=== PATIENT | female | born 1955 | race Hispanic/Latino ===

== ENCOUNTER 2016-06-20 14:47 | Emergency (ER) | payer OTHER ==
[2016-06-20 14:55] VITALS: TEMP 97.8
[2016-06-20 15:23] VITALS: BMI 24.6
--- NOTE | 2016-06-20 15:24 | ED PDOC ---
Arrival/HPI - General Chief Complaint: Abdominal Pain Time Seen by Provider: 06/20/16 14:48 Past Medical History - Infectious Disease Hx of Infectious Diseases: None - Reproductive Menopause: Yes - Cardiac Hx Cardiac Disorders: No - Pulmonary Hx Respiratory Disorders: No - Neurological Hx Neurological Disorder: No - HEENT Hx HEENT Disorder: No - Renal Hx Renal Disorder: No - Endocrine/Metabolic Hx Endocrine Disorders: No - Hematological/Oncological Hx Blood Disorders: No - Integumentary Hx Dermatological Disorder: No - Musculoskeletal/Rheumatological Hx Musculoskeletal Disorders: No - Gastrointestinal Hx Gastrointestinal Disorders: No - Genitourinary/Gynecological Hx Genitourinary Disorders: No - Psychiatric Hx Psychophysiologic Disorder: No Hx Substance Use: No - Anesthesia Hx Anesthesia: No Family/Social History Smoking Status: Never Smoked Hx Alcohol Use: No Hx Substance Use: No Physical Exam Vital Signs Temp Pulse Resp BP Pulse Ox 06/20/16 14:54 97.8 F 78 18 109/68 99 Disposition/Present on Arrival - Present on Arrival History of DVT/PE: No History of Uncontrolled Diabetes: No Urinary Catheter: No History of Decub. Ulcer: No History Surgical Site Infection Following: None
--- NOTE | 2016-06-20 15:24 | ED PDOC ---
Arrival/HPI - General Chief Complaint: Abdominal Pain Time Seen by Provider: 06/20/16 14:48 Historian: Patient - History of Present Illness Narrative History of Present Illness (Text): 06/20/16 15:21 Patient is a 61 yo female, no prior surgeries, presents to ED with difficulty urinating with some dysuria this AM, then developed right sided pain that would radiate to back, severe. Reports feeling nauseous, had episode of vomiting, and pain has almost completely resolved. Currently states she still has some difficulty urinating, although is able to do small amounts. Patient denies chest pain or shortness of breath. Nausea now resolved. No dark or bloody urine or stool noted. Time/Duration: Prior to Arrival Symptom Onset: Sudden Symptom Course: Improving Past Medical History - Infectious Disease Hx of Infectious Diseases: None - Reproductive Menopause: Yes - Cardiac Hx Cardiac Disorders: No - Pulmonary Hx Respiratory Disorders: No - Neurological Hx Neurological Disorder: No - HEENT Hx HEENT Disorder: No - Renal Hx Renal Disorder: No - Endocrine/Metabolic Hx Endocrine Disorders: No - Hematological/Oncological Hx Blood Disorders: No - Integumentary Hx Dermatological Disorder: No - Musculoskeletal/Rheumatological Hx Musculoskeletal Disorders: No - Gastrointestinal Hx Gastrointestinal Disorders: No - Genitourinary/Gynecological Hx Genitourinary Disorders: No - Psychiatric Hx Psychophysiologic Disorder: No Hx Substance Use: No - Anesthesia Hx Anesthesia: No Family/Social History Family/Social History: Unknown Family HX Smoking Status: Never Smoked Hx Alcohol Use: No Hx Substance Use: No Allergies/Home Meds Allergies/Adverse Reactions: Allergies aspirin Allergy (Unknown, Verified 06/20/16 15:25) SWELLING "That happened when I was really young." Review of Systems - Review of Systems Constitutional: absent: Fatigue, Fevers Eyes: absent: Vision Changes Respiratory: absent: SOB Cardiovascular: absent: Chest Pain Gastrointestinal: Abdominal Pain, Nausea, Vomiting. absent: Diarrhea Genitourinary Female: Dysuria, Frequency, Urine Output Changes. absent: Hematuria, Vaginal Bleeding, Vaginal Discharge Musculoskeletal: Back Pain. absent: Neck Pain Skin: absent: Rash Neurological: absent: Headache, Dizziness, Focal Weakness Endocrine: absent: Polyuria Hemo/Lymphatic: absent: Easy Bleeding Physical Exam - Physical Exam Narrative Physical Exam (Text): Head: Atraumatic. Normocephalic. Eyes: PERRL. EOMI. Conjunctivae are not pale. ENT: Mucous membranes are moist and intact. Oropharynx is clear and symmetric. Neck: Supple. Full ROM. No JVD. No lymphadenopathy. Cardiovascular: Regular rate. Regular rhythm. No murmurs, rubs, or gallops. Distal pulses are 2+ and symmetric. Pulmonary/Chest: No evidence of respiratory distress. Clear to auscultation bilaterally. No wheezing, rales or rhonchi. Abdominal: Soft and non-distended. There is no tenderness. No rebound, guarding, or rigidity. No organomegaly. Good bowel sounds. No incarcerated hernias. Back: No CVA tenderness. Extremities: No edema. No cyanosis. No clubbing. Full range of motion in all extremities. No calf tenderness. Skin: Skin is warm and dry. No petechiae. No purpura. Neurological: Alert, awake, and oriented. MOtor and sensory intact Psychiatric: Good eye contact. Normal interaction, affect, and behavior. Vital Signs Reviewed: Yes Vital Signs Temp Pulse Resp BP Pulse Ox 06/20/16 18:02 88 16 114/58 L 96 06/20/16 16:23 72 18 111/66 99 06/20/16 14:54 97.8 F 78 18 109/68 99 Temperature: Afebrile Appearance: Positive for: Non-Toxic, Comfortable Pain Distress: Mild Mental Status: Positive for: Alert and Oriented X 3 Medical Decision Making ED Course and Treatment: Differential diagnosis includes but is not limited to: Kidney stones vs abdominal pain Plan: Will obtain CT of the Abdomen and Pelvis and check labs. PROCEDURE: CT Abdomen and Pelvis without intravenous contrast Finish Sander : NICKOLAS LAST MD IMPRESSION: 1. No evidence of right nephrolithiasis, hydronephrosis or obstructive uropathy. 2. 3 mm nonobstructing calculi in the interpolar region and lower pole of the left kidney. 3 mm stone in the urinary bladder along the left posterolateral wall. 3. Normal appendix. Progress Notes: Patient reports initially feeling difficulty urinating prior to pain, but was able to do so, just not complete stream. She subsequently developed intermittent pain, "on and off". She had severe right sided pain prior to arrival, vomited, and pain now almoset completely resolved. Given history of urinary symptoms as well as intermittent nature of pain, suspect renal colic. On current exam in ED, no RLQ pain, no RUQ pain. Exam not consistent with appendicitis or cholecystitis due to lack of pain. On reexamination patient has no pain or discomfort and reports the pain is completely resolved. No hydronephrosis noted on CT. Patient able to urinate. WBC elevated although not septic and afebrile. Possible urinary tract infection noted. Prior antibiotic sensitivities were reviewed with her, thus patient will be placed on Macrodantin. Advised patient to follow up with urology for possible passed kidney stone. - Lab Interpretations Microbiology Results: Microbiology Results 06/20/16 15:29 Urine Urine Culture - Final No Growth (<1,000 CFU/ML) Lab Results: 06/20/16 15:29 06/20/16 15:29 Lab Results 06/20/16 15:29: WBC 15.8 H, RBC 4.43, Hgb 14.3, Hct 40.1, MCV 90.5, MCH 32.3, MCHC 35.7, RDW 13.8, Plt Count 287, MPV 10.3, Gran % 82.9 H, Lymph % (Auto) 12.4 L, [place] % (Auto) 3.9, Eos % (Auto) 0.6 L, Baso % (Auto) 0.2, Gran # 13.05 H , Lymph # 2.0, [place] # 0.6, Eos # 0.1, Baso # 0.03, Sodium 141, Potassium 3.7, Chloride 103, Carbon Dioxide 26, Anion Gap 16, BUN 20, Creatinine 1.0, Est GFR ( Amer) > 60, Est GFR (Non-Af Amer) 56, Random Glucose 115 H, Calcium 9.7 , Total Bilirubin 0.5, AST 28, ALT 29, Alkaline Phosphatase 82, Total Protein 7.1, Albumin 4.1, Globulin 3.0, Albumin/Globulin Ratio 1.4, Urine Color Yellow, Urine Appearance Clear, Urine pH 6.0, Ur Specific [place] 1.025, Urine Protein Trace H, Urine Glucose (UA) Negative, Urine Ketones Negative, Urine Blood Large H, Urine Nitrate Negative, Urine Bilirubin Negative, Urine Urobilinogen 0.2, Ur Leukocyte Esterase Negative, Urine RBC 25 - 30, Urine WBC 0 - 2, Ur Epithelial Cells 4 - 5, Amorphous Sediment Few, Urine Bacteria Mod - RAD Interpretation Radiology Orders: 03/24/17 15:28 ABD & PELVIS W/O PO OR IV CONT [CT] Stat - Medication Orders Current Medication Orders: Discontinued Medications Sodium Chloride (Sodium Chloride 0.9%) 1,000 mls @ 100 mls/hr IV .Q10H MATTY Last Admin: 06/20/16 15:32 Dose: 100 MLS/HR eMAR Start Stop Document 06/20/16 15:32 SF (Rec: 06/20/16 15:32 SF [id number] Intravenous Solution Start Date 06/20/16 Start Time 15:32 - Scribe Statement The provider has reviewed the documentation as recorded by the Scribe Eliu Gillette All medical record entries made by the Scribe were at my direction and personally dictated by me. I have reviewed the chart and agree that the record accurately reflects my personal performance of the history, physical exam, medical decision making, and the department course for this patient. I have also personally directed, reviewed, and agree with the discharge instructions and disposition. Disposition/Present on Arrival - Present on Arrival Any Indicators Present on Arrival: No History of DVT/PE: No History of Uncontrolled Diabetes: No Urinary Catheter: No History of Decub. Ulcer: No History Surgical Site Infection Following: None - Disposition Have Diagnosis and Disposition been Completed?: Yes Diagnosis: Flank pain, Renal colic on right side, UTI (urinary tract infection) Disposition: HOME/ ROUTINE Disposition Time: 18:00 Patient Plan: Discharge Condition: GOOD Discharge Instructions (ExitCare): Urinary Tract Infection in Women (ED), Renal Colic (ED), Flank Pain (ED) Additional Instructions: For any return of any pain, any difficulty urinating, any abdominal pain, any chest pain or shortness of breath, any nausea or vomiting, any bloody urine or stool, any return of back pain, any persistent or worsening of symptoms, get rechecked. Follow-up with your primary care doctor as well as a urologist as discussed. Take an antibiotic as directed. Prescriptions: Nitrofurantoin Macrocrystal [Macrodantin] 100 mg PO BID #14 capsule Referrals: Valery Wu MD [Staff Provider] - Follow up with primary
[2016-06-20] MEDS ORDERED: Sodium Chloride 0.9% 1,000 ML IV SCH (15:30)
[2016-06-20 15:35] LABS: ADD MANUAL DIFF? NO
[2016-06-20 15:52] LABS: URINE BILIRUBIN NEGATIVE (NEGATIVE); URINE BLOOD LARGE (NEGATIVE); URINE GLUCOSE (UA) NEGATIVE (NEGATIVE); URINE KETONE NEGATIVE (NEGATIVE); URINE LEUKOCYTE ESTERASE NEGATIVE Leu/uL (NEGATIVE); URINE PROTEIN TRACE mg/dL (<30 mg/dL); URINE UROBILINOGEN 0.2 E.U./dL (<1 E.U./dL)
[2016-06-20 15:53] LABS: BASO # 0.03 K/mm3 (0.0-2.0); BASO % 0.2 % (0.0-3.0); EOS # 0.1 (0.0-0.7); EOS % 0.6 % (1.5-5.0); GRAN # 13.05 (1.4-6.5); GRAN % 82.9 % (50.0-68.0); HEMATOCRIT 40.1 % (36.0-48.0); LYMPH % 12.4 % (22.0-35.0); MEAN CELL VOLUME 90.5 fL (80.0-105.0); MEAN CORPUSCULAR HEMOGLOBIN 32.3 pg (25.0-35.0); MEAN CORPUSCULAR HGB CONC 35.7 g/dl (31.0-37.0); MEAN PLATELET VOLUME 10.3 fl (7.0-11.0); MONO # 0.6 (0.1-0.6); MONO % 3.9 % (1.0-6.0); PLATELET COUNT 287 10^3/uL (120.0-450.0); RED CELL DISTRIBUTION WIDTH 13.8 % (11.5-14.5); WHITE BLOOD COUNT 15.8 10^3/ul (4.5-11.0)
[2016-06-20 15:57] LABS: ALB/GLOB RATIO 1.4 (1.1-1.8); ALKALINE PHOSPHATASE 82 U/L (38-133); ALT/SGPT 29 U/L (7-56); AST/SGOT 28 U/L (15-39); BILIRUBIN,TOTAL 0.5 mg/dL (0.2-1.3); BLOOD UREA NITROGEN 20 mg/dL (7-21); CALCIUM 9.7 mg/dL (8.4-10.5); CARBON DIOXIDE 26 mmol/L (21-33); CHLORIDE 103 mmol/L (98-107); GFR AFRICAN-AMERICAN > 60; GLUCOSE,RANDOM 115 mg/dL (70-110); POTASSIUM 3.7 mmol/L (3.6-5.0); SODIUM 141 mmol/L (132-148); TOTAL PROTEIN 7.1 g/dL (5.8-8.3)
[2016-06-20 16:00] LABS: URINE APPEARANCE CLEAR (CLEAR); URINE COLOR YELLOW (YELLOW)
[2016-06-20 16:05] LABS: URINE AMORPHOUS SEDIMENT FEW; URINE BACTERIA MOD (NEG); URINE RBC 25 - 30 /hpf (0-2); URINE WBC 0 - 2 /hpf (0-6)
--- NOTE | 2016-06-20 16:20 | CT ---
PROCEDURE: CT Abdomen and Pelvis without intravenous contrast HISTORY: Right flank pain COMPARISON: None. TECHNIQUE: Helical CT scan of the abdomen and pelvis was performed for targeted evaluation of urinary calculi without administration of oral or intravenous contrast. Coronal and sagittal reformatted images were obtained. Radiation dose: Total exam DLP = 370.82 mGy-cm. FINDINGS: LOWER THORAX: There is bibasilar subsegmental atelectasis. LIVER: The liver is normal in size. There is no intrahepatic biliary ductal dilatation. GALLBLADDER AND BILE DUCTS: There are no calcified gallstones, wall thickening or pericholecystic fluid. PANCREAS: The pancreas is normal in size without ductal dilatation or calcifications. SPLEEN: The spleen is normal in size. ADRENALS: Both adrenal glands are normal in size without discrete nodule. KIDNEYS AND URETERS: There is a 3 mm nonobstructing stone in the left interpolar region and a 3 mm nonobstructing stone in the left lower pole. There is no right nephrolithiasis. The ureters are not dilated. There is no hydronephrosis. VASCULATURE: No aortic aneurysm. BOWEL: The small bowel loops are normal in caliber. . No obstruction. No gross mural thickening. APPENDIX: No inflammatory changes in the right lower quadrant. Normal appendix. PERITONEUM: No free fluid. No free air. LYMPH NODES: No enlarged lymph nodes. BLADDER: The urinary bladder if well distended. There is a 3 mm stone along the left posterolateral wall. REPRODUCTIVE: The uterus is retroverted and normal in size. BONES: No acute fracture. Within normal limits for the patient's age. OTHER FINDINGS: None. IMPRESSION: 1. No evidence of right nephrolithiasis, hydronephrosis or obstructive uropathy. 2. 3 mm nonobstructing calculi in the interpolar region and lower pole of the left kidney. 3 mm stone in the urinary bladder along the left posterolateral wall. 3. Normal appendix.
[2016-06-20 18:03] VITALS: BP 114/58; PULSE 88; RESP 16; O2SAT 96
== END 2016-06-20 18:06 | disposition home or self-care (01) ==
LOC: MERGE 14:47 → ED 14:47
DX: N20.0 Calculus of kidney (principal); N39.0 Urinary tract infection, site not specified; R10.9 Unspecified abdominal pain
CPT/HCPCS: 74176; 80053; 81001; 85025; 87086; 99285; J7040